=== PATIENT | male | born 1950 | race Caucasian/White ===

== ENCOUNTER 2016-07-02 16:40 | Inpatient (IN) | payer OTHER ==
--- NOTE | ~2016-07-02 | DS ---
Discharge Summary [facility] [address] [place]. [address] NAME: JULIO GALVAN : 52 STATUS : DIS IN PAT#: [id number] AGE: 65 ADM/REG DATE : 07/02/16 MR#: [id number] REPORT SERV DATE: 07/04/16 DICTATED BY: SALINA MULLINS DATE: 07/03/16 REPORT STATUS : Draft TRANSCRIBED BY: MARY DATE: 07/03/16 ADMISSION DATE: 07/02/2016 DISCHARGE DATE: 07/03/2016 DIAGNOSES: 1. New-onset atrial fibrillation with rapid ventricular response. 2. Hypotension with orthostasis, resolved. 3. Hyperlipidemia. CONSULTANTS: Cardiology, Dr. Piedra. FOLLOWUP: The patient should follow up with his primary care physician in one to two weeks and to be worked referred by his primary care for an outpatient sleep study to rule out obstructive sleep apnea. The patient should follow up with Dr. Piedra in three to four weeks. DISCHARGE MEDICATIONS: Enteric-coated aspirin 81 mg p.o. daily, Wellbutrin 150 mg p.o. q.8 hours, Zocor 10 mg p.o. q.h.s., and cholecalciferol 2000 units p.o. daily. IMAGING: Echocardiogram with ejection fraction of 55% to 60% with mild left atrial enlargement. Normal RV size and systolic function. Mild aortic, mitral, and tricuspid regurg. Diastolic function is indeterminate. HOSPITAL COURSE: Please see H and P dictated. This is a 65 years old male with a past medical history of hyperlipidemia. The patient presented to his primary care's office after having some lightheadedness and dizziness, found to have some hypotension as well as atrial fibrillation with RVR. The patient was referred to [facility] ER and was treated, given IV fluids and a dose of digoxin, and placed on a heparin drip. The hospitalist was called to admit the patient to the hospital. His troponin was negative. Thyroid panel was within normal limits. He was bolused with IV fluids and the patient converted over to sinus rhythm. He did not require cardioversion. He was seen by accounts receivable executive, Dr. Piedra, during this hospital stay, who recommended discontinuing with a baby aspirin. The patient did not require any hcaris dante agents at discharge and also hypotension orthostasis had resolved at the time of discharge. The patient was educated on management and recommendations, and remained in sinus rhythm and was discharged to home in stable condition to follow up as an outpatient. TR/MARY Salina Mullins M.D. / [id number] Discharge Summary [address] [address] NAME: JULIO GALVAN : 52 STATUS : DIS IN PAT#: [id number] AGE: 65 ADM/REG DATE : 07/02/16 MR#: [id number] REPORT SERV DATE: 07/04/16 DICTATED BY: SALINA MULLINS DATE: 07/03/16 REPORT STATUS : Draft TRANSCRIBED BY: MARY DATE: 07/03/16 CC: Martell Clarke MD William Oellerich, M.D., Ph.D, F.A.C.C.
--- NOTE | ~2016-07-02 | CN ---
Consultation Report [facility] [address] [place]. [address] NAME: JULIO RANDALL : 52 STATUS : ADM IN [facility] WITH [facility]#: [id number] AGE: 65 ADM/REG DATE : 07/02/16 MR#: [id number] REPORT SERV DATE: 07/03/16 DICTATED BY: RON BEDOYA DATE: 07/02/16 REPORT STATUS : Draft TRANSCRIBED BY: MARY DATE: 07/02/16 DATE OF CONSULTATION: REASON FOR CONSULTATION: Atrial fibrillation. HISTORY OF PRESENT ILLNESS: Mr. Randall is a 65-year-old man with a history of elevated cholesterol, but he is overall in good health. He woke up this morning and felt a little dizzy, went to go to the bathroom and actually fell into the tub. He had no significant injury, went back to bed, woke up the next morning, still felt a little funny, got up and went to work. He still reported feeling a little lightheaded. He had his blood pressure checked at [facility], systolic pressure was in the 90s, he went to the [facility]. He was found to have atrial fibrillation and brought to the emergency room. He has never had this before. He has no chest pain or tightness. He has had no true episodes of syncope. He has no dyspnea or heart failure-type symptoms. No TIA or stroke. REVIEW OF SYSTEMS: As per the history of present illness. Ten other systems are negative. PAST MEDICAL HISTORY: Hypercholesterolemia. FAMILY HISTORY: Positive for coronary artery disease in mother, at 67 and cancer in father. 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 ALLERGIES: NO KNOWN DRUG ALLERGIES. HOME MEDICATIONS: Bupropion, simvastatin, and vitamin D. PHYSICAL EXAMINATION: VITAL SIGNS: The patient is afebrile. Heart rate 100, blood pressure 105/76. GENERAL: The patient is pleasant white male, in no apparent distress. HEENT: Conjunctivae are anicteric. No xanthelasma. Lips without cyanosis. NECK: Supple, normal JVP, carotids +2 without bruit. LUNGS: Clear to auscultation bilaterally. No wheezes, rales, or rhonchi. CARDIOVASCULAR: Irregularly irregular. Normal S1 and S2. ABDOMEN: Soft, nontender, nondistended with normal bowel sounds. No hepatomegaly. EXTREMITIES: No clubbing, cyanosis, or edema. NEURO/PSYCH: Alert and oriented to person, place, and time. No obvious neurologic deficits. Mood and affect normal. DATA: EKG shows atrial fibrillation, nonspecific ST-segment changes. LABORATORY DATA: Unremarkable. Consultation Report [facility] [place] [address] [place]. [address] NAME: JULIO RANDALL : 52 STATUS : ADM IN [facility] WITH [facility]#: [id number] AGE: 65 ADM/REG DATE : 07/02/16 MR#: [id number] REPORT SERV DATE: 07/03/16 DICTATED BY: RON BEDOYA DATE: 07/02/16 REPORT STATUS : Draft TRANSCRIBED BY: MARY DATE: 07/02/16 IMPRESSION: 1. Atrial fibrillation, new onset. 2. Hypercholesterolemia. 3. Transient hypotension, now improved. RECOMMENDATIONS: Mr. Randall has new-onset atrial fibrillation. His heart rate is better controlled with current medicines. I am going to get him started on anticoagulation. I will switch him off heparin and I will put him on Eliquis, get him scheduled for a NEVA- guided cardioversion if he does not revert on his own in the morning. His TSH is normal. His CHADS-VASc score is 0, but will need at least anticoagulation if our plan is to convert him back to sinus rhythm. Thank you for this consultation. Please contact me if you have any further questions. [facility]/MARY Ron Bedoya M.D., Ph.D, F.A.C.C. / [id number] CC: Mandy Aguila M.D.
--- NOTE | ~2016-07-02 | HP ---
History And Physical [place] [address] [facility] [place]. [address] NAME: JULIO GALVAN : 52 STATUS : ADM IN PAT#: [id number] AGE: 65 ADM/REG DATE : 07/02/16 MR#: [id number] REPORT SERV DATE: 07/03/16 DICTATED BY: SALINA MULLINS DATE: 07/02/16 REPORT STATUS : Draft TRANSCRIBED BY: MARY DATE: 07/02/16 DATE OF ADMISSION: 07/02/2016 CHIEF COMPLAINT: Lightheadedness and dizziness with arrhythmia. HISTORY OF PRESENT ILLNESS: A 65-year-old male with a past medical history of hyperlipidemia and anemia, presented to his primary care's office today with Dr. Kearney, for a complaint of lightheadedness and dizziness and found to have new onset atrial fibrillation. According to the patient around 2 a.m. this morning, he got up to go to the restroom, felt very dizzy and fatigued and fell into the bathtub, but then went back to bed and awakened later still with symptoms of dizziness and lightheadedness. The patient went to his primary care's office, found to have some mild hypotension, blood pressure 90/69, with a new onset atrial fibrillation on EKG with RVR, heart rate of 103 with positive orthostasis. Blood pressure had decreased systolic from 110 to 81 with from lying to standing. The patient denies any chest pain or ever having any history of chest discomfort. No shortness of breath. The patient states that he exercises about an hour at an outside gym three times a day and is usually very active. The patient was referred to [facility] ER and was seen by ER physician, Dr. Duarte. The patient's heart rate was ranging 110 to 130. The patient was given a liter bolus of fluid for mild hypotension, also given a dose of digoxin 0.5 IV and a heparin drip was initiated and the hospitalist was called to admit the patient to the hospital. The patient denies any subjective fever or chills. No headaches. No chest pain. No shortness of breath. No cough. No nausea or vomiting. No constipation. No diarrhea. No neuro focal deficits. Positive dizziness. Positive lightheadedness, especially with standing. Denies any bloody stools. No headaches. The patient denies any new medications and no medication changes and no [id number] medications which were new. REVIEW OF SYSTEMS: Please refer to HPI. PAST MEDICAL HISTORY: Hyperlipidemia, fatigue, hypoglycemia, anemia. PAST SURGICAL HISTORY: None. FAMILY HISTORY: Angina in mother in the age of 70. Father at age of 81 with renal cancer. SOCIAL HISTORY: No tobacco, alcohol, or illicit drugs. Works as a missionary full-time. Usually, he is very active and exercises one hour three times a week at a local gym. ALLERGIES: NO KNOWN ALLERGIES. HOME MEDICATIONS: Includes Wellbutrin 150 mg p.o. three times a day, vitamin D3 of 2000 units p.o. daily, Zocor 10 mg p.o. daily. PHYSICAL EXAMINATION: VITAL SIGNS: Temp of 98.5, initial blood pressure was 105/76 with a positive tilt on 87/43 prior to IV fluids. Blood pressure currently now 93/62, with a pulse of 112, respirations History And Physical [address] [address] NAME: JULIO GALVAN : 52 STATUS : ADM IN [facility]#: [id number] AGE: 65 ADM/REG DATE : 07/02/16 MR#: [id number] REPORT SERV DATE: 07/03/16 DICTATED BY: SALINA MULLINS DATE: 07/02/16 REPORT STATUS : Draft TRANSCRIBED BY: MARY DATE: 07/02/16 of 18, and saturating 99% on room air. GENERAL: The patient is alert and oriented x3. Currently, in no distress. Very pleasant. HEENT: Pupils are equal, round, and reactive to light. Extraocular muscles are intact. Moist mucous membranes. CARDIOVASCULAR: S1, S2. Irregularly irregular. S1-S2. No appreciated murmurs or rubs. No JVD. RESPIRATORY: Clear to auscultation bilaterally. No wheezes or crackles. No signs of tachypnea. ABDOMEN: Positive bowel sounds. Soft, nontender. No rebound. No fluid wave. No distention. EXTREMITIES: 2+ pulse bilaterally. No edema. NEURO: Cranial nerves II through XII grossly intact. Moves all four extremities. No neuro focal deficits. IMAGING: Chest x-ray, no acute infiltrates. Lung romo are clear. Read by Dr. Powell. LABORATORY DATA: Sodium 143, potassium 4.2 with a chloride of 109, bicarb of 27, BUN of 15, creatinine of 1.12, with a glucose of 100, calcium of 8.6, magnesium of 2.3. Troponin less than 0.02 with a TSH 2.05. White count of 5.7 with a hemoglobin of 14.9, and platelet count of 195. INR 1.1. EKG: Atrial fibrillation with RVR with a ventricular rate of 111. Q-waves in inferior leads. No ST elevation appreciated. ASSESSMENT AND PLAN: 1. New onset atrial fibrillation with rapid ventricular response. 2. Orthostasis with some mild hypotension. 3. Hyperlipidemia. 4. We will continue with IV fluid bolusing for now. Also, we will start antiarrhythmic medication and also consult Cardiology. We will also check and order an echocardiogram. I have spoken with Dr. Piedra, who is on-call, who will see the patient today, who agrees with IV fluid bolusing and also recommend low dose of IV Lopressor if blood pressure tolerates. Heart rate apparently is improving at this time. We will closely monitor. Also, we will continue with heparin drip that has been initiated in the ER. The patient may require cardioversion. However, Cardiology to decide. [facility]/MARY Salina Mullins M.D. / [id number] CC: History And Physical [address] [address] NAME: JULIO GALVAN : 52 STATUS : ADM IN [facility]#: [id number] AGE: 65 ADM/REG DATE : 07/02/16 MR#: [id number] REPORT SERV DATE: 07/03/16 DICTATED BY: SALINA MULLINS DATE: 07/02/16 REPORT STATUS : Draft TRANSCRIBED BY: MARY DATE: 07/02/[address]
[2016-07-02 16:30] LABS: BASOPHILS 0.2 %; BASOPHILS ABSOLUTE 0.01 10/3/uL (0.0-0.16); EOSINOPHILS 0.9 %; EOSINOPHILS ABSOLUTE 0.05 10/3/uL (0.0-0.53); ER CBC TAT 0 Hrs 05 Mins; HEMATOCRIT 41.5 % (40.0-51.0); HEMOGLOBIN 14.9 g/dL (13.6-17.8); IMMATURE GRANULOCYTES 0.2 %; IMMATURE GRANULOCYTES ABSOLUTE 0.01 10/3/uL (0.0-0.11); LYMPHOCYTES 23.8 %; LYMPHOCYTES ABSOLUTE 1.36 10/3/uL (0.67-4.30); MEAN CORPUS HGB CONC 35.9 g/dL (32.0-36.0); MEAN CORPUSCULAR HEMOGLOB 29.1 pg (26.0-34.0); MEAN CORPUSCULAR VOLUME 81.1 fL (80-100); MEAN PLATELET VOLUME 9.3 fL (9.2-13.0); MONOCYTES ABSOLUTE 0.63 10/3/uL (0.21-1.20); NEUTROPHILS 63.9 %; NEUTROPHILS ABSOLUTE 3.66 10/3/uL (2.02-8.40); PLATELET COUNT 195 10/3/uL (150-400); RBC DISTRIBUTION WIDTH 12.3 % (12.0-16.0); RED CELL COUNT 5.12 10/6/uL (4.7-6.1); WHITE BLOOD CELLS 5.7 10/3/uL (4.5-10.5)
[2016-07-02 16:31] LABS: MANUAL DIFF NO %
[2016-07-02 16:38] LABS: INTERNATIONAL NORMAL RATI 1.1 UNITS (-); PARTIAL THROMBO TIME 27.3 SEC (22.5-37.2); PROTIME (NOT ORD) 13.8 SEC (12.0-14.5)
[~2016-07-02 16:40] MED LIST: VITAMIN D31000 UNIT PO; WELL75 PO; ZOCOR10 PO
[2016-07-02 16:46] LABS: BUN (BLOOD UREA NITROGEN) 15 MG/DL (6-23); CALCIUM, SERUM 8.6 MG/DL (8.5-10.4); CHEST PAIN PROFILE TAT 0 Hrs 21 Mins; CHLORIDE, SERUM 109 MMOL/L (96-112); CO2 (CARBON DIOXIDE) 27 MMOL/L (24-34); CREATININE 1.12 MG/DL (0.70-1.30); GFR AFRICAN AMERICAN 80 ML/MIN (>=60); GFR NON AFRICAN AMERICAN 69 ML/MIN (>=60); GLUCOSE, SERUM 100 MG/DL (60-99); POTASSIUM, SERUM 4.2 MMOL/L (3.5-5.3); SODIUM, SERUM 143 MMOL/L (135-148); TROPONIN I <0.02 NG/ML (<0.05)
[2016-07-02 23:02] LABS: ASCORBIC ACID (UR NOT ORDER) NEG (NEG); BILIRUBIN, URINE NEGATIVE (NEG); KETONE, URINE 20 MG/DL (NEG); LEUKOCYTE ESTERASE(NOT OR NEG (NEG); WBC (NOT ORDERED) (RFLEX) 1 (0-5)
[2016-07-03 05:35] LABS: BASOPHILS 0.2 %; BASOPHILS ABSOLUTE 0.01 10/3/uL (0.0-0.16); EOSINOPHILS 1.5 %; EOSINOPHILS ABSOLUTE 0.08 10/3/uL (0.0-0.53); HEMOGLOBIN 12.8 g/dL (13.6-17.8); IMMATURE GRANULOCYTES 0.2 %; IMMATURE GRANULOCYTES ABSOLUTE 0.01 10/3/uL (0.0-0.11); LYMPHOCYTES 24.4 %; MEAN CORPUS HGB CONC 34.8 g/dL (32.0-36.0); MEAN CORPUSCULAR HEMOGLOB 27.8 pg (26.0-34.0); MONOCYTES 14.5 %; MONOCYTES ABSOLUTE 0.77 10/3/uL (0.21-1.20); NEUTROPHILS 59.2 %; NEUTROPHILS ABSOLUTE 3.15 10/3/uL (2.02-8.40); PLATELET COUNT 191 10/3/uL (150-400); RBC DISTRIBUTION WIDTH 12.7 % (12.0-16.0); WHITE BLOOD CELLS 5.3 10/3/uL (4.5-10.5)
[2016-07-03 05:39] LABS: HEMATOCRIT 36.8 % (40.0-51.0)
[2016-07-03 05:40] LABS: MANUAL DIFF NO %
[2016-07-03 06:04] LABS: BUN (BLOOD UREA NITROGEN) 17 MG/DL (6-23); CALCIUM, SERUM 8.2 MG/DL (8.5-10.4); CHLORIDE, SERUM 114 MMOL/L (96-112); CHOL/HDL RATIO(NOT ORDER) 4.1 (0-5); CHOLESTEROL 119 MG/DL (< 200); CO2 (CARBON DIOXIDE) 25 MMOL/L (24-34); CREATININE 1.12 MG/DL (0.70-1.30); GFR AFRICAN AMERICAN 80 ML/MIN (>=60); GFR NON AFRICAN AMERICAN 69 ML/MIN (>=60); GLUCOSE, SERUM 91 MG/DL (60-99); HDL CHOLESTEROL 29 MG/DL (> 39); LDL CHOLESTEROL 72 MG/DL (< 130); NON-HDL CHOLESTEROL 90 MG/DL (< 160); PHOSPHORUS, SERUM 2.8 MG/DL (2.5-4.5); SODIUM, SERUM 146 MMOL/L (135-148); TRIGLYCERIDE 93 MG/DL (< 150); TROPONIN I <0.02 NG/ML (<0.05)
[2016-07-03] MEDS ORDERED: HALF81 PO (16:50)
== END 2016-07-03 18:09 | disposition home or self-care (01) | DRG 312 ==
LOC: ER 16:40 → 7NO 19:20
PROVIDERS: Hospitalist; Internal Medicine Cardiovascular Disease; Student in an Organized Health Care Education/Training Program
DX: I95.1 Orthostatic hypotension (principal); I48.91 Unspecified atrial fibrillation; E78.5 Hyperlipidemia, unspecified; E78.00 Pure hypercholesterolemia, unspecified
CPT/HCPCS: 71010; 80048; 80061; 81001; 83735; 84100; 84443; 84484; 85025; 85379; 85610; 85730; 93005; 93306; 96361; 96374; 96375; 99291; A9270-GY; J1160